=== PATIENT | male | born 1995 | race Caucasian/White ===

== ENCOUNTER 2024-06-30 13:15 | Outpatient (AMB) | payer OTHER, SELFPAY ==
--- NOTE | 2024-06-30 13:29 | AM.OFFWIN_ITS ---
Intake Vital Signs 06/30/24 13:31 Height 6 ft 4 in Weight 163 lb BMI 19.8 BP 112/72 Blood Pressure Location Rt brachial Position Sitting Pulse 80 Pulse Source Pulse Oximeter Temp 99.0 F Temp Source Oral Pulse Oximetry (%) 98 Oxygen Delivery Method Room Air Intake Visit Reasons: [employer]-fever, cough, vomiting, chest mucus Intake Note: Patient here for vomiting, cough,fever, chest congestion that started Wednesday. Patient Tobacco Use Status: Never used Tobacco Allergies No Known Allergies Allergy (Verified 06/30/24 13:34) Do you need a note to return to daycare/school/sports/work: Yes HPI [employer]-fever, cough, vomiting, chest mucus HPI Details This is a 29-year-old male patient who presents to the walk-in clinic today with report of a 3 day history of body aches, nasal congestion, fever, productive cough with yellow sputum. States his girlfriend is also sick with si milar symptoms. Has not taken anything [id number]. Denies shortness of breath. [facility] Social History Patient Tobacco Use Status: Never used Tobacco Review of Systems Const All systems reviewed & are unremarkable except as noted in HPI and below Physical Exam Vital Signs: BMI result Body Mass Index 19.8 Const General: cooperative and ill appearing acutely Limitations: no limitations HEENT Head: Yes normal to inspection Ears: hearing grossly normal bilaterally General nose exam: Normal external nose present and Nasal discharge present mucoid Face and sinus: Yes normal facial exam Throat: Yes posterior oropharynx normal Neck Neck: Yes no lymphadenopathy Resp Effort & Inspection: normal respiratory effort and Actively coughing Quality: productive Auscultation: clear to auscultation bilaterally Cardio Rate: regular rate Rhythm: regular rhythm Skin General skin exam: no rashes or lesions noted Extrem General: Yes capillary refill normal and Yes no clubbing, cyanosis or edema Psych Appearance: grossly normal Mental Status: mental status grossly normal Speech and movement: Normal speech and movement present Assessment & Plan Assessment & Plan (1) Viral upper respiratory infection: Code(s): J06.9 - Acute upper respiratory infection, unspecified Plan: Symptoms consistent with viral upper respiratory illness. Recommended conservative measures for symptom management, including rest, hydration, [id number] cold/flu medication, Tylenol p.r.n.. Patient declined viral testing today. I provided him a note for work. We discussed that if he does not improve with time and conservative measures, or if symptoms worsen/new symptoms develop, he can return to the clinic for further evaluation. He verbalizes understanding and agrees to plan. Coding Level of Care Code Est Pt Level 4 (61263) Diagnoses Viral upper respiratory infection J06.9
[2024-06-30 13:31] VITALS: BP 112/72; PULSE 80; TEMP 37.2; O2SAT 98; BMI 19.8
== END 2024-06-30 14:06 | disposition home or self-care (01) ==
PROVIDERS: Visit Provider Nurse Practitioner Family
DX: J06.9 Acute upper respiratory infection, unspecified (principal)

== ENCOUNTER → 2024-06-30 13:15 | Outpatient (BNVA) | payer OTHER, SELFPAY | PROVIDERS: Visit Provider Nurse Practitioner Family ==